=== PATIENT | male | born 1980 | race Two or more races ===

== ENCOUNTER 2018-06-05 21:45 | Emergency (ER) | payer SELFPAY ==
[2018-06-05] MEDS ORDERED: Sodium Chloride 0.9% 1,000 ML IV ONE (21:50)
--- NOTE | 2018-06-05 21:50 | C.PDOC ---
History Of Present Illness 37 year old male is brought to the ED by EMS for public intoxication. Patient was found intoxicated outside a bar actively vomiting. Patient admits to drinking alcohol today. Patient denies SI/HI, hallucinations, injury, fall, trauma, CP, SOB. Time Seen by Provider: 06/05/18 21:50 Chief Complaint (Nursing): Substance Abuse History Per: Patient, EMS History/Exam Limitations: intoxication Onset/Duration Of Symptoms: Hrs Current Symptoms Are (Timing): Still Present Suicide/Self Injury Attempted (Context): None Modifying Factor(s): Alcohol Associated Symptoms: denies: Depression, Suicidal Thoughts, Suicidal Plan Recent travel outside of the [place]: No Additional History Per: Patient, EMS Past Medical History Reviewed: Historical Data, Nursing Documentation, Vital Signs Vital Signs: Last Vital Signs Temp 98.7 F 06/05/18 21:46 Pulse 97 H 06/05/18 21:46 Resp 20 06/05/18 21:46 BP 131/86 06/05/18 21:46 Pulse Ox 99 06/05/18 21:46 - Medical History PMH: No Chronic Diseases Surgical History: No Surg Hx Family History: States: Unknown Family Hx - Social History Hx Alcohol Use: Yes Hx Substance Use: No Review Of Systems Constitutional: Negative for: Fever, Chills Cardiovascular: Negative for: Chest Pain, Palpitations Gastrointestinal: Positive for: Vomiting. Negative for: Nausea, Diarrhea Skin: Negative for: Rash Psych: Negative for: Depression, Suicidal ideation Physical Exam - Physical Exam Appears: Non-toxic, No Acute Distress Skin: Warm, Dry Head: Normacephalic Eye(s): bilateral: Normal Inspection Oral Mucosa: Moist Neck: Supple Chest: Symmetrical Cardiovascular: Rhythm Regular Respiratory: No Rales, No Rhonchi, No Wheezing Gastrointestinal/Abdominal: Soft, Tenderness (mid epigastric), No Guarding, No Rebound Extremity: Bilateral: Atraumatic, Normal Color And Temperature, Normal ROM Neurological/Psych: Oriented x3, Normal Speech, Normal Cognition Gait: Steady ED Course And Treatment - Laboratory Results Result Diagrams: 06/05/18 22:07 06/05/18 22:07 O2 Sat by Pulse Oximetry: 99 (ON RA) Pulse Ox Interpretation: Normal Progress Note: Plan: - Labs. - Protonix 40 mg IVP. - Zofran 4 mg IVP. - IV fluids. - Critical Care Time - Critical Care Note Total Time (in mins): 30 Documented critical care: time excludes all time spent performing seperately billable procedures. Disposition Discussed With Dr.: Lamin Augustin Comment: accepted the pt on his service and took over the care at 2:39AM Doctor Will See Patient In The: ED Counseled Patient/Family Regarding: Studies Performed, Diagnosis, Need For Followup - Disposition Disposition: HOSPITALIZED Disposition Time: 21:50 Condition: FAIR Forms: [email or web address] Connect ([place]uan) - POA Present On Arrival: Poor Glycemic Control - Clinical Impression Clinical Impression: Alcohol intoxication, Hyperglycemia, Vomiting - Scribe Statement The provider has reviewed the documentation as recorded by the Scribe Dave Narvaez All medical record entries made by the Scribe were at my direction and personally dictated by me. I have reviewed the chart and agree that the record accurately reflects my personal performance of the history, physical exam, medical decision making, and the department course for this patient. I have also personally directed, reviewed, and agree with the discharge instructions and disposition. Decision To Admit - Pt Status Changed To: Hospital Disposition Of: Observation - . Bed Request Type: Regular Admitting Physician: Lamin Augustin Patient Diagnosis: Alcohol intoxication, Hyperglycemia
[2018-06-05 22:10] LABS: BASO % 0.3 % (0.0-2.0); EOS # 0.1 K/uL (0.0-0.7); EOS % 1.1 % (0.0-4.0); LYMPH # 2.8 K/uL (1.0-4.3); LYMPH % 33.5 % (20.0-40.0); MEAN CORPUSCULAR HEMOGLOBIN 30.4 pg (27.0-31.0); MEAN PLATELET VOLUME 7.7 fL (7.2-11.7); MONO # 0.5 K/uL (0.0-0.8); MONO % 5.9 % (0.0-10.0); NEUT % 59.2 % (50.0-75.0); RBC 5.25 Mil/uL (4.40-5.90); RED CELL DISTRIBUTION WIDTH 12.8 % (11.5-14.5); WHITE BLOOD COUNT 8.5 K/uL (4.8-10.8)
[2018-06-05] MEDS ORDERED: Sodium Chloride 0.9% 1,000 ML ONE (22:12)
[2018-06-05 22:23] LABS: ALB/GLOB RATIO 1.6 (1.0-2.1); ALBUMIN 5.2 g/dL (3.5-5.0); BLOOD UREA NITROGEN 10 mg/dL (9-20); CALCIUM 9.5 mg/dl (8.6-10.4); GFR NON-AFRICAN AMERICAN > 60
[2018-06-05 22:24] LABS: ALT/SGPT 41 U/L (21-72); AST/SGOT 27 U/L (17-59)
[2018-06-05 23:01] LABS: VENOUS BLOOD GAS BASE EXCESS -6.4 mmol/L (0.0-2.0); VENOUS BLOOD GAS PCO2 43 mmHg (40-60); VENOUS BLOOD GAS PO2 57 mm/Hg (30-55); VENOUS BLOOD PH 7.28 (7.32-7.43)
[2018-06-05] MEDS ORDERED: Sodium Chloride 0.9% 2,000 ML IV ONE (23:01)
[2018-06-05] MEDS ORDERED: Sodium Chloride 0.9% 2,000 ML ONE (23:28)
[2018-06-06] MEDS ORDERED: Sodium Chloride 0.9% 1,000 ML IV ONE (01:22)
[2018-06-06 01:41] LABS: URINE BILIRUBIN NEGATIVE (NEGATIVE); URINE BLOOD NEGATIVE (NEGATIVE); URINE CLARITY Clear (Clear); URINE COLOR Straw (YELLOW); URINE GLUCOSE (UA) 3+ mg/dL (Normal); URINE LEUKOCYTE ESTERASE NEG Leu/uL (Negative); URINE PROTEIN NEGATIVE (NEGATIVE); URINE UROBILINOGEN NORMAL mg/dL (0.2-1.0)
[2018-06-06 01:53] LABS: VENOUS BLOOD GAS PCO2 49 mmHg (40-60); VENOUS BLOOD GAS PO2 35 mm/Hg (30-55); VENOUS BLOOD PH 7.25 (7.32-7.43)
--- NOTE | 2018-06-06 04:21 | CP.PCM.HP ---
<Juan Scott - Last Filed: 06/06/18 05:26> History of Present Illness - History of Present Illness History of Present Illness: PGY-1 H&P note for Dr Augustin service cc: shortness of breath, vomiting Patient is a 37 year old male with past medical history of DM that came to ER brought by EMS from bar due to being intoxicated and vomiting. Patient admits to being in a bar in [place] earlier today and having two [place] drinks. Patient had shortness of breath after that, and went to the bathroom where he vomited one time. Patient remembers they called 911, and then he does not remember the events after that. He was told by EMS staff that he vomited one more time in ambulance but he does not recall. Patient admits to "chest burning" mostly described as heartburn since this morning. Patient has not eaten since this morning. Patient admits to having a similar episode of shortness of breath a month ago, when he was admitted at [facility] and was told he had a "cardiac arrest" and was told that his artery was "40% blocked". PAtient admits to weakness, and being hungry and thirsty. Patient denies fever, chest pain, shortness of breath, nausea, vomiting, diarrhea, constipation, or urinary symptoms. Patient denies any head or other type of trauma or seizures/shaking. Patient admits to lossing 10 pounds in the past month after hospitalization. PMD: does not remember All: NKDA Pmhx: DM (diagnosed 2 years ago), VSD Shx: none Fmhx: DM (father) Sochx: 1 pack a day every day in the last month, 5-7 cigarettes/daily for the past 10 years, drinks one a wekk, about 1-2 cocktails and/or 2 beers, denies drug use. Works as software support representative, lives in apartment in [place], [place] Meds: metforming 1000mg PO BID Present on Admission - Present on Admission Any Indicators Present on Admission: No Review of Systems - Review of Systems All systems: reviewed and no additional remarkable complaints except Review of Systems: as stated in HPI Past Patient History - Past Social History Smoking Status: Light Smoker < 10 Cigarettes Daily - ENDOCRINE/METABOLIC Hx Endocrine Disorders: Yes Hx Diabetes Mellitus Type 2: Yes - PSYCHIATRIC Hx Substance Use: No - SURGICAL HISTORY Hx Surgeries: No Meds Allergies/Adverse Reactions: Allergies Allergy/AdvReac Type Severity Reaction Status Date / Time No Known Allergies Allergy Verified 06/05/18 21:49 Physical Exam - Constitutional Appears: Non-toxic, No Acute Distress - Head Exam Head Exam: ATRAUMATIC, NORMAL INSPECTION, NORMOCEPHALIC - Eye Exam Eye Exam: EOMI, Normal appearance - ENT Exam ENT Exam: Mucous Membranes Dry - Neck Exam Neck exam: Positive for: Full Rom, Normal Inspection - Respiratory Exam Respiratory Exam: Clear to Auscultation Bilateral, NORMAL BREATHING PATTERN. absent: Rales, Rhonchi, Wheezes - Cardiovascular Exam Cardiovascular Exam: Tachycardia, REGULAR RHYTHM, +S1, +S2 - GI/Abdominal Exam GI & Abdominal Exam: Normal Bowel Sounds, Soft. absent: Distended, Tenderness - Extremities Exam Extremities exam: Positive for: full ROM, normal inspection. Negative for: pedal edema, tenderness - Back Exam Back exam: FULL ROM, NORMAL INSPECTION. absent: rash noted, vertebral tenderness - Neurological Exam Neurological exam: Alert, Normal Gait, Oriented x3 - Psychiatric Exam Psychiatric exam: Normal Affect, Normal Mood - Skin Skin Exam: Dry, Intact, Normal Color, Warm Results - Vital Signs Recent Vital Signs: Last Vital Signs Temp 98.7 F 06/05/18 21:46 Pulse 100 H 06/06/18 03:46 Resp 18 06/06/18 03:46 BP 99/60 L 06/06/18 03:46 Pulse Ox 97 06/06/18 03:46 - Labs Result Diagrams: 06/05/18 22:07 06/05/18 22:07 Labs: Laboratory Results - last 24 hr 06/05/18 06/05/18 06/05/18 21:51 22:07 22:07 WBC 8.5 RBC 5.25 Hgb 16.0 Hct 45.7 MCV 87.0 MCH 30.4 MCHC 35.0 RDW 12.8 Plt Count 318 MPV 7.7 Neut % (Auto) 59.2 Lymph % (Auto) 33.5 [place] % (Auto) 5.9 Eos % (Auto) 1.1 Baso % (Auto) 0.3 Neut # (Auto) 5.0 Lymph # (Auto) 2.8 [place] # (Auto) 0.5 Eos # (Auto) 0.1 Baso # (Auto) 0.0 pO2 VBG pH VBG pCO2 VBG HCO3 VBG Total CO2 VBG O2 Sat (Calc) VBG Base Excess VBG Potassium Glucose Lactate Crit Value Called To Crit Value Called By Crit Value Read Back Blood Gas Notified Time Sodium 136 Potassium 3.7 Chloride 99 Carbon Dioxide 19 L Anion Gap 22 H BUN 10 Creatinine 0.7 L Est GFR ( Amer) > 60 Est GFR (Non-Af Amer) > 60 POC Glucose (mg/dL) 358 H Random Glucose 354 H Calcium 9.5 Phosphorus 1.2 L Magnesium 1.8 Total Bilirubin 0.7 AST 27 ALT 41 Alkaline Phosphatase 73 Total Protein 8.6 H Albumin 5.2 H Globulin 3.4 Albumin/Globulin Ratio 1.6 Venous Blood Potassium Urine Color Urine Clarity Urine pH Ur Specific [place] Urine Protein Urine Glucose (UA) Urine Ketones Urine Blood Urine Nitrate Urine Bilirubin Urine Urobilinogen Ur Leukocyte Esterase Urine WBC (Auto) Urine RBC (Auto) Alcohol, Quantitative 176 H B-Hydroxybutyrate 06/05/18 06/05/18 06/06/18 22:44 22:56 01:32 WBC RBC Hgb Hct MCV MCH MCHC RDW Plt Count MPV Neut % (Auto) Lymph % (Auto) [place] % (Auto) Eos % (Auto) Baso % (Auto) Neut # (Auto) Lymph # (Auto) [place] # (Auto) Eos # (Auto) Baso # (Auto) pO2 57 H VBG pH 7.28 L VBG pCO2 43 VBG HCO3 19.6 VBG Total CO2 21.5 L VBG O2 Sat (Calc) 87.4 H VBG Base Excess -6.4 L VBG Potassium 2.6 L Glucose 323 H Lactate 4.1 H* Crit Value Called To gigi Manzano Crit Value Called By Mary Carmen alonzo rrt Crit Value Read Back Y Blood Gas Notified Time 2300 Sodium 140.0 Potassium Chloride 100.0 Carbon Dioxide Anion Gap BUN Creatinine Est GFR ( Amer) Est GFR (Non-Af Amer) POC Glucose (mg/dL) 238 H Random Glucose Calcium Phosphorus Magnesium Total Bilirubin AST ALT Alkaline Phosphatase Total Protein Albumin Globulin Albumin/Globulin Ratio Venous Blood Potassium 2.6 L Urine Color Urine Clarity Urine pH Ur Specific [place] Urine Protein Urine Glucose (UA) Urine Ketones Urine Blood Urine Nitrate Urine Bilirubin Urine Urobilinogen Ur Leukocyte Esterase Urine WBC (Auto) Urine RBC (Auto) Alcohol, Quantitative B-Hydroxybutyrate 0.74 H 06/06/18 06/06/18 01:36 01:45 WBC RBC Hgb Hct MCV MCH MCHC RDW Plt Count MPV Neut % (Auto) Lymph % (Auto) [place] % (Auto) Eos % (Auto) Baso % (Auto) Neut # (Auto) Lymph # (Auto) [place] # (Auto) Eos # (Auto) Baso # (Auto) pO2 35 VBG pH 7.25 L VBG pCO2 49 VBG HCO3 19.1 VBG Total CO2 23.0 VBG O2 Sat (Calc) 63.6 VBG Base Excess -6.0 L VBG Potassium 3.2 L Glucose 243 H Lactate 2.1 Crit Value Called To Crit Value Called By Crit Value Read Back Blood Gas Notified Time Sodium 143.0 Potassium Chloride 111.0 H Carbon Dioxide Anion Gap BUN Creatinine Est GFR ( Amer) Est GFR (Non-Af Amer) POC Glucose (mg/dL) Random Glucose Calcium Phosphorus Magnesium Total Bilirubin AST ALT Alkaline Phosphatase Total Protein Albumin Globulin Albumin/Globulin Ratio Venous Blood Potassium 3.2 L Urine Color Straw Urine Clarity Clear Urine pH 6.0 Ur Specific [place] 1.012 Urine Protein Negative Urine Glucose (UA) 3+ H Urine Ketones 1+ H Urine Blood Negative Urine Nitrate Negative Urine Bilirubin Negative Urine Urobilinogen Normal Ur Leukocyte Esterase Neg Urine WBC (Auto) < 1 Urine RBC (Auto) < 1 Alcohol, Quantitative B-Hydroxybutyrate Assessment & Plan - Assessment and Plan (Free Text) Plan: Lactic acidosis possible due to alcohol intoxication vs uncontrolled DM VBG - pH 7.28, - VBG lactate 4.1 - afebrile, vitals within normal limits, no leukocytosis - Alcohol 176, B- hydroxybutyrate - U/A Glucose +3, ketones 1+ - Zofran x1, Protonix x 1 - 4L Bolus NS in ED - repeat VBG- ph 7.25, lactate 2.1 - repeat labs - f/u Chest pain/SOB r/o cardiac etiology -hx of cardiac event - unspecified blockage of artery via cath - EKG - f/u - Troponin x 1 - Chest Xray - f/u - obtain records from [facility] from admission on 05/03 to 12/13 Hyperglycemia - possible due to alcohol intake and uncontrolled DM - VBG glucose 323 - HbA1C stat - f/u - Hold home metformin 1000 mg PO BID for now due to early lactic acidosis - 4L NS bolus given in Ed - repeat glucose VBG is now 243 - ISS low dose - hypoglycemia protocol - accuchecks ACHS hypophosphatemia - in ED 1.2 - replete phosphorous with potassium phosphate 15 mmole x 1 - repeat labs, replete as needed Hx of DMII - hold metformin - ISS, accuchecks, hypoglycemia protocol - low fat/low chol, HHD, Low CHO Vomiting - Zofran x1 in ED, protonix x1 in ED - Has resolved at this time Ppx - No DVT or GI prophylaxis - HHD DIsPO: obtain records from [facility] from patient's last hospitalization from 05/03/18 to 05/06/18 due to an unspecified cardiac condition. Plan discussed w/ Dr Charli Scott, PGY-1 - Date & Time Date: 06/06/18 Time: 03:00 <Lamin Augustin P - Last Filed: 06/06/18 07:46> Results - Vital Signs Recent Vital Signs: Last Vital Signs Temp 97.9 F 06/06/18 05:58 Pulse 82 06/06/18 05:58 Resp 18 06/06/18 05:58 BP 111/62 06/06/18 05:58 Pulse Ox 97 06/06/18 05:58 - Labs Result Diagrams: 06/06/18 06:22 06/06/18 06:22 Labs: Laboratory Results - last 24 hr 06/05/18 06/05/18 06/05/18 21:51 22:07 22:07 WBC 8.5 RBC 5.25 Hgb 16.0 Hct 45.7 MCV 87.0 MCH 30.4 MCHC 35.0 RDW 12.8 Plt Count 318 MPV 7.7 Neut % (Auto) 59.2 Lymph % (Auto) 33.5 [place] % (Auto) 5.9 Eos % (Auto) 1.1 Baso % (Auto) 0.3 Neut # (Auto) 5.0 Lymph # (Auto) 2.8 [place] # (Auto) 0.5 Eos # (Auto) 0.1 Baso # (Auto) 0.0 pO2 VBG pH VBG pCO2 VBG HCO3 VBG Total CO2 VBG O2 Sat (Calc) VBG Base Excess VBG Potassium Glucose Lactate Crit Value Called To Crit Value Called By Crit Value Read Back Blood Gas Notified Time Sodium 136 Potassium 3.7 Chloride 99 Carbon Dioxide 19 L Anion Gap 22 H BUN 10 Creatinine 0.7 L Est GFR ( Amer) > 60 Est GFR (Non-Af Amer) > 60 POC Glucose (mg/dL) 358 H Random Glucose 354 H Calcium 9.5 Phosphorus 1.2 L Magnesium 1.8 Total Bilirubin 0.7 AST 27 ALT 41 Alkaline Phosphatase 73 Troponin I Total Protein 8.6 H Albumin 5.2 H Globulin 3.4 Albumin/Globulin Ratio 1.6 Venous Blood Potassium Urine Color Urine Clarity Urine pH Ur Specific [place] Urine Protein Urine Glucose (UA) Urine Ketones Urine Blood Urine Nitrate Urine Bilirubin Urine Urobilinogen Ur Leukocyte Esterase Urine WBC (Auto) Urine RBC (Auto) Alcohol, Quantitative 176 H B-Hydroxybutyrate 06/05/18 06/05/18 06/06/18 22:44 22:56 01:32 WBC RBC Hgb Hct MCV MCH MCHC RDW Plt Count MPV Neut % (Auto) Lymph % (Auto) [place] % (Auto) Eos % (Auto) Baso % (Auto) Neut # (Auto) Lymph # (Auto) [place] # (Auto) Eos # (Auto) Baso # (Auto) pO2 57 H VBG pH 7.28 L VBG pCO2 43 VBG HCO3 19.6 VBG Total CO2 21.5 L VBG O2 Sat (Calc) 87.4 H VBG Base Excess -6.4 L VBG Potassium 2.6 L Glucose 323 H Lactate 4.1 H* Crit Value Called To gigi Manzano Crit Value Called By Mary Carmen alonzo,shannon Crit Value Read Back Y Blood Gas Notified Time 2300 Sodium 140.0 Potassium Chloride 100.0 Carbon Dioxide Anion Gap BUN Creatinine Est GFR ( Amer) Est GFR (Non-Af Amer) POC Glucose (mg/dL) 238 H Random Glucose Calcium Phosphorus Magnesium Total Bilirubin AST ALT Alkaline Phosphatase Troponin I Total Protein Albumin Globulin Albumin/Globulin Ratio Venous Blood Potassium 2.6 L Urine Color Urine Clarity Urine pH Ur Specific [place] Urine Protein Urine Glucose (UA) Urine Ketones Urine Blood Urine Nitrate Urine Bilirubin Urine Urobilinogen Ur Leukocyte Esterase Urine WBC (Auto) Urine RBC (Auto) Alcohol, Quantitative B-Hydroxybutyrate 0.74 H 06/06/18 06/06/18 06/06/18 01:36 01:45 06:22 WBC RBC Hgb Hct MCV MCH MCHC RDW Plt Count MPV Neut % (Auto) Lymph % (Auto) [place] % (Auto) Eos % (Auto) Baso % (Auto) Neut # (Auto) Lymph # (Auto) [place] # (Auto) Eos # (Auto) Baso # (Auto) pO2 35 VBG pH 7.25 L VBG pCO2 49 VBG HCO3 19.1 VBG Total CO2 23.0 VBG O2 Sat (Calc) 63.6 VBG Base Excess -6.0 L VBG Potassium 3.2 L Glucose 243 H Lactate 2.1 Crit Value Called To Crit Value Called By Crit Value Read Back Blood Gas Notified Time Sodium 143.0 139 Potassium 4.0 Chloride 111.0 H 109 H Carbon Dioxide 23 Anion Gap 11 BUN 7 L Creatinine 0.5 L Est GFR ( Amer) > 60 Est GFR (Non-Af Amer) > 60 POC Glucose (mg/dL) Random Glucose 247 H D Calcium 7.2 L Phosphorus 3.4 Magnesium 1.5 L Total Bilirubin 0.4 AST 18 ALT 41 Alkaline Phosphatase 46 Troponin I < 0.0120 Total Protein 5.7 L Albumin 3.2 L D Globulin 2.5 Albumin/Globulin Ratio 1.3 Venous Blood Potassium 3.2 L Urine Color Straw Urine Clarity Clear Urine pH 6.0 Ur Specific [place] 1.012 Urine Protein Negative Urine Glucose (UA) 3+ H Urine Ketones 1+ H Urine Blood Negative Urine Nitrate Negative Urine Bilirubin Negative Urine Urobilinogen Normal Ur Leukocyte Esterase Neg Urine WBC (Auto) < 1 Urine RBC (Auto) < 1 Alcohol, Quantitative B-Hydroxybutyrate 06/06/18 06:22 WBC 8.3 RBC 4.23 L Hgb 12.7 D Hct 37.2 MCV 87.9 MCH 29.9 MCHC 34.0 RDW 12.9 Plt Count 233 MPV 7.4 Neut % (Auto) 56.3 Lymph % (Auto) 34.8 [place] % (Auto) 5.9 Eos % (Auto) 1.0 Baso % (Auto) 2.0 Neut # (Auto) 4.6 Lymph # (Auto) 2.9 [place] # (Auto) 0.5 Eos # (Auto) 0.1 Baso # (Auto) 0.2 pO2 VBG pH VBG pCO2 VBG HCO3 VBG Total CO2 VBG O2 Sat (Calc) VBG Base Excess VBG Potassium Glucose Lactate Crit Value Called To Crit Value Called By Crit Value Read Back Blood Gas Notified Time Sodium Potassium Chloride Carbon Dioxide Anion Gap BUN Creatinine Est GFR ( Amer) Est GFR (Non-Af Amer) POC Glucose (mg/dL) Random Glucose Calcium Phosphorus Magnesium Total Bilirubin AST ALT Alkaline Phosphatase Troponin I Total Protein Albumin Globulin Albumin/Globulin Ratio Venous Blood Potassium Urine Color Urine Clarity Urine pH Ur Specific [place] Urine Protein Urine Glucose (UA) Urine Ketones Urine Blood Urine Nitrate Urine Bilirubin Urine Urobilinogen Ur Leukocyte Esterase Urine WBC (Auto) Urine RBC (Auto) Alcohol, Quantitative B-Hydroxybutyrate Attending/Attestation - Attestation I have personally seen and examined this patient.: Yes I have fully participated in the care of the patient.: Yes I have reviewed all pertinent clinical information: Yes Notes (Text): 06/06/18 07:33 Presentation of lethargy with ? alcohol intoxication, vomiting, hyperghlyecmia, lacticacidosis, which improved DD from metormin, episodic or temporary ishcemia generating lactic acid Recent cath done in [facility] with ? 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 See orders for detail.
[2018-06-06] MEDS ORDERED: Potassium Phosphate 15 MMOLE in Sodium Chloride 0.9% 250 ML IVPB ONE (04:31)
[2018-06-06] MEDS ORDERED: Dextrose 50% SYRINGE Inj (50 ml) IV PRN (04:36)
[2018-06-06] MEDS ORDERED: Glucagon Recombinant 1 mg Inj IM PRN (04:36)
[2018-06-06 06:26] LABS: BASO # 0.2 K/uL (0.0-0.2); EOS # 0.1 K/uL (0.0-0.7); HEMOGLOBIN 12.7 g/dL (12.0-18.0); LYMPH # 2.9 K/uL (1.0-4.3); LYMPH % 34.8 % (20.0-40.0); MEAN CELL VOLUME 87.9 fL (80.0-94.0); MEAN CORPUSCULAR HEMOGLOBIN 29.9 pg (27.0-31.0); MEAN PLATELET VOLUME 7.4 fL (7.2-11.7); MONO # 0.5 K/uL (0.0-0.8); MONO % 5.9 % (0.0-10.0); NEUT # 4.6 K/uL (1.8-7.0); NEUT % 56.3 % (50.0-75.0); NRBC % 0.1 % (0.0-2.0); RBC 4.23 Mil/uL (4.40-5.90); RED CELL DISTRIBUTION WIDTH 12.9 % (11.5-14.5); WHITE BLOOD COUNT 8.3 K/uL (4.8-10.8)
[2018-06-06 06:41] LABS: ALB/GLOB RATIO 1.3 (1.0-2.1); ALBUMIN 3.2 g/dL (3.5-5.0); ALT/SGPT 41 U/L (21-72); AST/SGOT 18 U/L (17-59); BLOOD UREA NITROGEN 7 mg/dL (9-20); CALCIUM 7.2 mg/dl (8.6-10.4); GFR NON-AFRICAN AMERICAN > 60
[2018-06-06] MEDS ORDERED: (Novolin R) Insulin Human Regular 100 units/ml vial SC SCH (07:30)
[2018-06-06] MEDS ORDERED: Magnesium Sulfate 1 gm in D5W 1 GM/100 ML BAG IVPB SCH (08:00)
[2018-06-06 09:47] VITALS: BP 112/74; PULSE 79; RESP 16; TEMP 98; O2SAT 98
--- NOTE | 2018-06-06 10:13 | RAD ---
Date of service: 06/06/2018 HISTORY: Chest pain and shortness of breath COMPARISON: No prior. TECHNIQUE: Chest PA and lateral FINDINGS: LINES AND TUBES: None. LUNG AND PLEURA: The lungs are well inflated. There is multifocal linear atelectasis in the lower lobes, worse on the right. No pleural effusion or pneumothorax. HEART AND MEDIASTINUM: The heart is not enlarged. No aortic atherosclerotic calcifications present. The hilar and mediastinal contours are within normal limits. SKELETAL STRUCTURES: The bony structures are within normal limits for the patient's age. VISUALIZED UPPER ABDOMEN: Normal. OTHER FINDINGS: None. IMPRESSION: Multifocal discoid atelectasis in the lower lobes, worse on the right. No evidence for lobar pneumonia.
--- NOTE | 2018-06-06 10:32 | CP.PCM.DIS ---
Provider - Provider Date of Admission: 06/06/18 02:41 Attending physician: Lamin Augustin MD Time Spent in preparation of Discharge (in minutes): 31 Hospital Course - Lab Results Lab Results: Most Recent Lab Values WBC 8.3 K/uL (4.8-10.8) 06/06/18 06:22 RBC 4.23 Mil/uL (4.40-5.90) L 06/06/18 06:22 Hgb 12.7 g/dL (12.0-18.0) D 06/06/18 06:22 Hct 37.2 % (35.0-51.0) 06/06/18 06:22 MCV 87.9 fL (80.0-94.0) 06/06/18 06:22 MCH 29.9 pg (27.0-31.0) 06/06/18 06:22 MCHC 34.0 g/dL (33.0-37.0) 06/06/18 06:22 RDW 12.9 % (11.5-14.5) 06/06/18 06:22 Plt Count 233 K/uL (130-400) 06/06/18 06:22 MPV 7.4 fL (7.2-11.7) 06/06/18 06:22 Neut % (Auto) 56.3 % (50.0-75.0) 06/06/18 06:22 Lymph % (Auto) 34.8 % (20.0-40.0) 06/06/18 06:22 [place] % (Auto) 5.9 % (0.0-10.0) 06/06/18 06:22 Eos % (Auto) 1.0 % (0.0-4.0) 06/06/18 06:22 Baso % (Auto) 2.0 % (0.0-2.0) 06/06/18 06:22 Neut # (Auto) 4.6 K/uL (1.8-7.0) 06/06/18 06:22 Lymph # (Auto) 2.9 K/uL (1.0-4.3) 06/06/18 06:22 [place] # (Auto) 0.5 K/uL (0.0-0.8) 06/06/18 06:22 Eos # (Auto) 0.1 K/uL (0.0-0.7) 06/06/18 06:22 Baso # (Auto) 0.2 K/uL (0.0-0.2) 06/06/18 06:22 pO2 35 mm/Hg (30-55) 06/06/18 01:45 VBG pH 7.25 (7.32-7.43) L 06/06/18 01:45 VBG pCO2 49 mmHg (40-60) 06/06/18 01:45 VBG HCO3 19.1 mmol/L 06/06/18 01:45 VBG Total CO2 23.0 mmol/L (22-28) 06/06/18 01:45 VBG O2 Sat (Calc) 63.6 % (40-65) 06/06/18 01:45 VBG Base Excess -6.0 mmol/L (0.0-2.0) L 06/06/18 01:45 VBG Potassium 3.2 mmol/L (3.6-5.2) L 06/06/18 01:45 Sodium 143.0 mmol/l (132-148) 06/06/18 01:45 Chloride 111.0 mmol/L (98-107) H 06/06/18 01:45 Glucose 243 mg/dl (75-110) H 06/06/18 01:45 Lactate 2.1 mmol/L (0.7-2.1) 06/06/18 01:45 Crit Value Called To kanchan Manzano 06/05/18 22:56 Crit Value Called By Mary Carmen alonzo,shannon 06/05/18 22:56 Crit Value Read Back Y 06/05/18 22:56 Blood Gas Notified Time 2300 06/05/18 22:56 Sodium 139 mmol/L (132-148) 06/06/18 06:22 Potassium 4.0 mmol/L (3.6-5.2) 06/06/18 06:22 Chloride 109 mmol/L (98-107) H 06/06/18 06:22 Carbon Dioxide 23 mmol/L (22-30) 06/06/18 06:22 Anion Gap 11 (10-20) 06/06/18 06:22 BUN 7 mg/dL (9-20) L 06/06/18 06:22 Creatinine 0.5 mg/dL (0.8-1.5) L 06/06/18 06:22 Est GFR ( Amer) > 60 06/06/18 06:22 Est GFR (Non-Af Amer) > 60 06/06/18 06:22 POC Glucose (mg/dL) 238 mg/dL (65-110) H 06/06/18 01:32 Random Glucose 247 mg/dL (75-110) H D 06/06/18 06:22 Hemoglobin A1c 9.8 % (4.2-6.5) H 06/05/18 22:44 Calcium 7.2 mg/dl (8.6-10.4) L 06/06/18 06:22 Phosphorus 3.4 mg/dL (2.5-4.5) 06/06/18 06:22 Magnesium 1.5 mg/dL (1.6-2.3) L 06/06/18 06:22 Total Bilirubin 0.4 mg/dL (0.2-1.3) 06/06/18 06:22 AST 18 U/L (17-59) 06/06/18 06:22 ALT 41 U/L (21-72) 06/06/18 06:22 Alkaline Phosphatase 46 U/L (38-126) 06/06/18 06:22 Troponin I < 0.0120 ng/mL (0.00-0.120) 06/06/18 06:22 Total Protein 5.7 g/dL (6.3-8.3) L 06/06/18 06:22 Albumin 3.2 g/dL (3.5-5.0) L D 06/06/18 06:22 Globulin 2.5 gm/dL (2.2-3.9) 06/06/18 06:22 Albumin/Globulin Ratio 1.3 (1.0-2.1) 06/06/18 06:22 Venous Blood Potassium 3.2 mmol/L (3.6-5.2) L 06/06/18 01:45 Urine Color Straw (YELLOW) 06/06/18 01:36 Urine Clarity Clear (Clear) 06/06/18 01:36 Urine pH 6.0 (5.0-8.0) 06/06/18 01:36 Ur Specific [place] 1.012 (1.003-1.030) 06/06/18 01:36 Urine Protein Negative mg/dL (NEGATIVE) 06/06/18 01:36 Urine Glucose (UA) 3+ mg/dL (Normal) H 06/06/18 01:36 Urine Ketones 1+ mg/dL (NEGATIVE) H 06/06/18 01:36 Urine Blood Negative (NEGATIVE) 06/06/18 01:36 Urine Nitrate Negative (NEGATIVE) 06/06/18 01:36 Urine Bilirubin Negative (NEGATIVE) 06/06/18 01:36 Urine Urobilinogen Normal mg/dL (0.2-1.0) 06/06/18 01:36 Ur Leukocyte Esterase Neg [place]/uL (Negative) 06/06/18 01:36 Urine WBC (Auto) < 1 /hpf (0-5) 06/06/18 01:36 Urine RBC (Auto) < 1 /hpf (0-3) 06/06/18 01:36 Alcohol, Quantitative 176 mg/dl (0-10) H 06/05/18 22:07 B-Hydroxybutyrate 0.74 mM (0.02-0.27) H 06/05/18 22:44 - Hospital Course Hospital Course: HPI: Patient is a 37 year old male with past medical history of DM that came to ER brought by EMS from bar due to being intoxicated and vomiting. Patient admits to being in a bar in [place] earlier today and having two [place] drinks. Patient had shortness of breath after that, and went to the bathroom where he vomited one time. Patient remembers they called 911, and then he does not remember the events after that. He was told by EMS staff that he vomited one more time in ambulance but he does not recall. Patient admits to "chest burning" mostly described as heartburn since this morning. Patient has not eaten since this morning. Patient admits to having a similar episode of shortness of breath a month ago, when he was admitted at [facility] and was told he had a "cardiac arrest" and was told that his artery was "40% blocked". Patient admits to weakness, and being hungry and thirsty. Patient denies fever, chest pain, shortness of breath, nausea, vomiting, diarrhea, constipation, or urinary symptoms. Patient denies any head or other type of trauma or seizures/shaking. Patient admits to loosing 10 pounds in the past month after hospitalization. Hospital course: Patient was admitted on 06/05/17 for alcohol abuse, uncontrolled DM, lactic acidosis, and electrolyte abnormality. Labs were ordered, electrolytes were repleted; EKG and troponin were ordered and were normal. Patient was seen and examined, had complaints of metallic "bad" taste in his mouth, but no longer had chest pain. The patient requested to leave AMA. Patient is alert and orientedx3. Risks were explained and understood by the patient. KANCHAN Anderson was present at bedside and witnessed discussion. Patient signed the AMA form at 10:30am, as did KANCHAN Anderson. Patient advised to return to nearest ER if symptoms reoccur or worsen. This is a brief summary of the hospital course. Please see EMR for more details. Discharge Exam - Head Exam Head Exam: ATRAUMATIC, NORMAL INSPECTION, NORMOCEPHALIC - Eye Exam Eye Exam: EOMI, Normal appearance - ENT Exam ENT Exam: Mucous Membranes Moist - Respiratory Exam Respiratory Exam: Clear to PA & Lateral, NORMAL BREATHING PATTERN, UNREMARKABLE. absent: Rhonchi, Wheezes, Respiratory Distress - Cardiovascular Exam Cardiovascular Exam: REGULAR RHYTHM, +S1, +S2 - GI/Abdominal Exam GI & Abdominal Exam: Normal Bowel Sounds, Soft, Unremarkable. absent: Distended, Firm, Tenderness - Extremities Exam Extremities exam: normal inspection, pedal pulses present - Neurological Exam Neurological exam: Alert, Oriented x3 - Psychiatric Exam Psychiatric exam: Normal Affect, Normal Mood - Skin Skin Exam: Dry, Normal Color, Warm Discharge Plan - Follow Up Plan Condition: FAIR Disposition: AGAINST MEDICAL ADVICE Instructions: Hyperglycemia, Adult, Alcohol Abuse and Alcoholism (DC) Additional Instructions: Patient requested to leave AMA. Patient is alert and orientedx3. Risks were explained and understood by the patient. KANCHAN Anderson was present at bedside and witnessed discussion. Patient signed the AMA form at 10:30am, as did KANCHAN Anderson. Patient advised to return to nearest ER if symptoms reoccur or worsen.
--- NOTE | 2018-06-07 21:27 | CARD ---
APPROVED REPORT Date of service: 06/06/2018 EKG Measurement Heart [id number] <Conclusion> Normal sinus rhythm Normal ECG
== END 2018-06-06 10:45 | disposition left against medical advice (07) ==
LOC: C.ER 21:45 → UNDOADMOB 06-06 02:41 → C.9E 06-06 02:41 → UNDODISOB 06-06 10:30
DX: F10.129 Alcohol abuse with intoxication, unspecified (principal); Y90.6 Blood alcohol level of 120-199 mg/100 ml; R73.9 Hyperglycemia, unspecified; R11.10 Vomiting, unspecified
CPT/HCPCS: 71046; 80053; 81001; 82009; 82803; 82948; 83036; 83735; 84100; 84484; 85025; 93005; 96361; 96374; 96375; 99285; C9113; G0480; J2405; J7030